=== PATIENT | female | born 1960 | race Caucasian/White ===

== ENCOUNTER 2016-11-11 07:15 | Inpatient (IN) | payer OTHER ==
[2016-11-05 12:23] LABS: % IMMATURE GRANULYOCYTES 0.3 % (0.0-1.1); ABSOLUTE IMMATURE GRANULOCYTES 0.02 10^3/uL (0.00-0.10); ADD DIFF? NO; ADD MORPH? NO; ADD SCAN? NO; ATYPICAL LYMPHOCYTE FLAG 10 (0-99); FRAGMENT RBC FLAG 0 (0-99); HEMATOCRIT 45.8 % (38.0-47.0); HEMOGLOBIN 15.9 g/dL (12.6-16.3); LEFT SHIFT FLG 0 (0-99); LIPEMIA HEMOLYSIS FLAG 90 (0-99); MEAN CELL HEMOGLOBIN 34.5 pg (27.9-34.1); MEAN CELL HEMOGLOBIN CONCENTR. 34.7 g/dL (32.4-36.7); MEAN CELL VOLUME 99.3 fL (81.5-99.8); MEAN PLATELET VOLUME 9.3 fL (8.7-11.7); PLATELET CLUMPS FLAG 10 (0-99); PLATELET COUNT 219 10^3/uL (150-400); RED BLOOD CELL COUNT 4.61 10^6/uL (4.18-5.33); RED CELL DISTRIBUTION WIDTH 12.5 % (11.5-15.2)
--- NOTE | 2016-11-05 14:37 | CPEKG ---
Heart Rate: 65 RR Interval: 923 P-R Interval: 168 QRSD Interval: 92 QT Interval: 420 QTC Interval: 437 P [place]: 52 QRS [place]: 50 T Wave [place]: 41 EKG Severity - NORMAL ECG - EKG Impression: SINUS RHYTHM Electronically Signed By: Eleno Hitchcock 05-Nov-2016 14:56:51
[2016-11-17] MEDS ORDERED: BUPIVACAINE/EPI 0.5% 30 ML SDV ONE (08:46)
[2016-11-17] MEDS ORDERED: POLYMYXIN B SULFATE 500,000 UNIT/10 ML SYR IRR ONE (08:47)
[2016-11-17] MEDS ORDERED: CALCIUM CHLORIDE 1 GM/10 ML INJ ONE (08:47)
[2016-11-17] MEDS ORDERED: THROMBIN (BOVINE) 5,000 UNIT VIAL TP ONE (08:47)
[2016-11-17] MEDS ORDERED: BACITRACIN 50,000 UNITS/10 ML SYR IRR ONE (08:48)
[2016-11-17] MEDS ORDERED: LIDOCAINE 1% 2 ML INJ ONE (09:23)
[2016-11-17] MEDS ORDERED: LR 1,000 ML IV ONE (09:41)
[2016-11-17] MEDS ORDERED: LIDOCAINE 1% 5 ML SDV ID PRN (09:41)
[2016-11-17] MEDS ORDERED: fentaNYL 250 MCG/5 ML INJ ONE (09:59)
[2016-11-17] MEDS ORDERED: MIDAZOLAM 2 MG/2 ML VIAL ONE ×2 (09:59→11:28)
[2016-11-17] MEDS ORDERED: FAMOTIDINE 20 MG TAB PO ONE (10:30)
[2016-11-17] MEDS ORDERED: CHLORHEXIDINE GLUC HIBICLENS 118 ML BTL TP ONE (10:30)
[2016-11-17] MEDS ORDERED: DEXAMETHASONE 4 MG/ML VIAL IVP ONE (10:30)
[2016-11-17] MEDS ORDERED: ACETAMINOPHEN 325 MG TAB PO ONE (10:30)
[2016-11-17] MEDS ORDERED: ROPI/epiNEPH/KETOROLAC/morphINE JOINT COCKTAIL IU ONE (10:30)
[2016-11-17] MEDS ORDERED: CEFAZOLIN 2 GM/DEXTR 100 ML IV ONE (10:30)
[2016-11-17] MEDS ORDERED: PROPOFOL 200 MG/20 ML VIAL ONE ×2 (10:54→12:43)
[2016-11-17] MEDS ORDERED: PROPOFOL/EMULSION 500 MG/50 ML BOTTLE IV ONE (10:54)
[2016-11-17 13:12] LABS: % IMMATURE GRANULYOCYTES 0.3 % (0.0-1.1); ABSOLUTE IMMATURE GRANULOCYTES 0.02 10^3/uL (0.00-0.10); ADD DIFF? NO; ADD MORPH? NO; ADD SCAN? NO; ATYPICAL LYMPHOCYTE FLAG 0 (0-99); FRAGMENT RBC FLAG 0 (0-99); HEMATOCRIT 35.2 % (38.0-47.0); LEFT SHIFT FLG 0 (0-99); LIPEMIA HEMOLYSIS FLAG 90 (0-99); MEAN CELL HEMOGLOBIN 33.9 pg (27.9-34.1); MEAN CELL HEMOGLOBIN CONCENTR. 34.1 g/dL (32.4-36.7); MEAN CELL VOLUME 99.4 fL (81.5-99.8); MEAN PLATELET VOLUME 9.5 fL (8.7-11.7); PLATELET CLUMPS FLAG 0 (0-99); PLATELET COUNT 204 10^3/uL (150-400); RED BLOOD CELL COUNT 3.54 10^6/uL (4.18-5.33)
--- NOTE | 2016-11-17 14:01 | POSTOPPROG ---
Post Op Note Date of Operation: 11/17/16 Surgeon: Marie Murillo Personnel Director: luz manuel Anesthesia: Epidural, IV Sedation Pre-op Diagnosis: l hip oa Procedure: l zbigniew with fluoro Inf/Abcess present in the surg proc area at time of surgery?: No Depth: Deep Incisional (Fascial) EBL: 500-1000
[2016-11-17] MEDS ORDERED: TEMAZEPAM 15 MG CAP PO PRN (14:02)
[2016-11-17] MEDS ORDERED: ONDANSETRON 4 MG/2 ML VIAL IVP PRN (14:02)
[2016-11-17] MEDS ORDERED: LACTULOSE 20 GM/30 ML UDCUP PO PRN (14:02)
[2016-11-17] MEDS ORDERED: PHARMACY PAIN CONSULT 1 EA MISC PRN (14:02)
[2016-11-17] MEDS ORDERED: CYCLOBENZAPRINE 10 MG TAB PO PRN (14:02)
[2016-11-17] MEDS ORDERED: METOCLOPRAMIDE 10 MG/2 ML VIAL IVP PRN (14:02)
[2016-11-17] MEDS ORDERED: MAGNESIUM HYDROXIDE 30 ML UDCUP PO PRN (14:02)
[2016-11-17] MEDS ORDERED: DIPHENOXYLATE/ATROPINE LOMOTIL 1 TAB PO PRN (14:02)
[2016-11-17] MEDS ORDERED: POLYETHYLENE GLYCOL 3350 17 GM PKT PO PRN (14:02)
[2016-11-17] MEDS ORDERED: diphenhydrAMINE 25 MG CAP PO PRN (14:02)
[2016-11-17] MEDS ORDERED: PROMETHAZINE HCL 25 MG SUPPR PR PRN (14:02)
[2016-11-17] MEDS ORDERED: BISACODYL 10 MG SUPP PR PRN (14:02)
[2016-11-17] MEDS ORDERED: fentaNYL 100 MCG/2 ML INJ ONE (14:15)
[2016-11-17] MEDS ORDERED: LR 1,000 ML IV SCH (14:30)
[2016-11-17] MEDS ORDERED: traMADol 50 MG TAB ONE (15:34)
[2016-11-17] MEDS ORDERED: ACETAMINOPHEN 325 MG TAB ONE (15:35)
[2016-11-17] MEDS ORDERED: KETOROLAC 30 MG/1 ML SDV ONE (15:35)
[2016-11-17] MEDS: ACETAMINOPHEN 325 MG TAB PO SCH (15:37)
[2016-11-17] MEDS: traMADol 50 MG TAB PO SCH (15:37)
[2016-11-17] MEDS: KETOROLAC 30 MG/1 ML SDV IVP SCH (15:37)
--- NOTE | 2016-11-17 15:39 | GOP ---
[f rep st] OPERATIVE REPORT DATE OF OPERATION: 11/17/2016 SURGEON: Marie Murillo MD COOLER SERVICER: Keven Noriega, certified PA, whose presence was medically necessary. ANESTHESIA: Spinal plus sedation. PREOPERATIVE DIAGNOSIS: Left hip osteoarthritis. POSTOPERATIVE DIAGNOSIS: Left hip osteoarthritis. PROCEDURE PERFORMED: Left total hip arthroplasty with fluoroscopy. FINDINGS: INDICATIONS: This is a 56-year-old female with a long history of left hip pain , worsening with use and with time. Radiologic imaging reveals [id number] osteoarthritic changes to the hip and acetabulum with dysplasia noted. She wishes to have surgery in order to resolve the problem. DESCRIPTION OF PROCEDURE: Patient brought to the operating room after the left side had been identified as the correct side by the patient, nurse, and physician. Once in the operating room, she was given a spinal nerve block. She was then placed on a traction table with a well-padded perineal post, and both legs placed in appropriate leg boone. Fluoroscopy was used to ensure proper positioning of the pelvis and the femur. Once ensured, the left hip and flank were sterilely prepped and draped in the usual fashion using a GSI solution. Once prepped and draped, a linear incision was made starting 2 cm lateral and inferior to the ASIS and headed in a 15 degree posterior direction, with sharp dissection carried down through the skin and subcutaneous layers, and bleeding controlled using electrocautery. The fascia overlying the TFL was identified and the fascia cut in line with its fibers, with the muscle belly of the tensor fascia kenna retracted laterally. Dissection deeper into the sheath revealed the circumflex vessels, which were ligated using electrocautery. Deeper dissection revealed the fat overlying the capsule. Blunt Cobra retractors were placed in the superior and inferior portions of the femoral neck with a T- incision made through the hip capsule. Stay sutures were placed in the superior and inferior portions of the capsule, with the Cobra retractors moved intra-articularly. An anterior retractor was placed on the anterior portion of the acetabulum. The labrum was identified and removed. Oscillating saw was used to cut across the femoral neck just above the intertrochanteric line, with the cut completed using the flat osteotome. The leg was externally rotated 40 degrees and a corkscrew was used to remove the femoral head. [place] and a curette were used to remove the pulvinar from the base of the acetabulum, along with removing the remainder of the labrum. Sequential reamers were used starting at a size 46 up to a size 49, which was noted to get good peripheral bleeding bone. The trial was noted to fit well, was checked under fluoroscopy. Once ensured we had the proper size, a size 50 mm Tritanium [place] cup was put into place with screws placed in superior and posterior portions of the cup, with a 50 x 28 mm ceramic liner placed within the acetabular cup with position checked under fluoroscopy. Once in proper position, attention was turned to the proximal femur, which was externally rotated to 90 degrees. Soft tissue dissection was done along the anterior portion of the femoral neck and the superior portion of the femoral neck, onto the greater trochanter itself. Once an adequate tissue release had been performed, the leg was placed into extension and adduction, gaining further access to the proximal femur. Rongeur was used to remove the proximal medullary bone and the superior portion of the femoral neck. Rat tail broach was placed within the femoral canal and sequential broaches were used up to a size 5, which was noted to fit securely. Trial reduction was performed, noted to have adequate fill of the proximal femur with a size 5 and very close to leg length, therefore, the leg was re-dislocated, trial was removed, and a size 5 Accolade II 127-degree neck stem was put into place and noted to fit securely. A trial was done with a +4 head and noted to fit securely and gave good stability, along with regaining her leg length, matching it to the opposite side. Therefore, the hip was re-dislocated. The trial head was removed. The trunnion was cleaned and dried and a 28 +4 mm Janusz ceramic head was placed on the femoral component. The hip was then relocated, noted to fit securely. Final fluoroscopy pictures were taken and noted to fit adequately. Joint cocktail was injected around the hip capsule, around the acetabulum and the proximal femur. 30 cc of Marcaine was infused around the actual skin incision itself. The capsule was closed using 0 Vicryl suture in a [id number] type stitch with plasma gel placed intra-articularly. 0 Vicryl was then used to close the fascia overlying the TFL with plasma gel placed within the TFL sheath. 0 Vicryl and 2-0 Vicryl suture were used to close the subcutaneous layers, and a 3-0 V-Loc suture in a running subcuticular stitch was used to close the skin. The wound was dressed with Steri-Strips, Xeroform, 4 x 4, and Tegaderm. She was completely undraped in the operating room, had both legs taken out of their appropriate leg boone. The perineal post was removed. Leg lengths were checked and noted to be nearly equal. She was then transferred onto a stretcher , and sent to recovery room in good condition. /[id number]/MODL MTDD
[2016-11-17] MEDS: oxyCODONE IR 5 MG TAB PO PRN ×2 (16:45→21:13)
[2016-11-17] MEDS: ceFAZolin 2 GM/DEXTROSE 100 ML IV SCH (19:03)
[2016-11-17] MEDS: FAMOTIDINE 20 MG TAB PO SCH (21:13)
[2016-11-17] MEDS: SENNOSIDES/DOCUSATE SODIUM TAB PO SCH (21:13)
[2016-11-17] MEDS: ONDANSETRON DISINTEGRATING 4 MG TAB PO PRN (22:25)
[2016-11-18] MEDS: KETOROLAC 30 MG/1 ML SDV IVP SCH ×3 (00:01→13:06)
[2016-11-18] MEDS: traMADol 50 MG TAB PO SCH ×3 (00:01→13:07)
[2016-11-18] MEDS: ceFAZolin 2 GM/DEXTROSE 100 ML IV SCH (02:55)
[2016-11-18] MEDS: oxyCODONE IR 5 MG TAB PO PRN (02:59)
[2016-11-18 03:50] VITALS: RESP 16
[2016-11-18 05:26] LABS: HEMATOCRIT 22.4 % (38.0-47.0); HEMOGLOBIN 7.8 g/dL (12.6-16.3)
[2016-11-18] MEDS: ACETAMINOPHEN 325 MG TAB PO SCH ×3 (05:29→13:06)
[2016-11-18] MEDS: FAMOTIDINE 20 MG TAB PO SCH (08:28)
[2016-11-18] MEDS: SENNOSIDES/DOCUSATE SODIUM TAB PO SCH (08:28)
[2016-11-18] MEDS ORDERED: VENLAFAXINE XR 37.5 MG CAP PO SCH (09:00)
[2016-11-18] MEDS ORDERED: RIVAROXABAN 10 MG TAB PO SCH (09:00)
--- NOTE | 2016-11-18 15:20 | SOAPPROG ---
SOAP Progress Note Assessment/Plan: Assessment: Plan: Subjective: states she's ready for home dressing C&D with min decrease sensation at lateral thigh DC to home Objective: Vital Signs Temp Pulse Resp BP Pulse Ox 36.8 C 108 H 16 114/62 95 11/18/16 11:31 11/18/16 11:31 11/18/16 11:31 11/18/16 11:31 11/18/16 11:31 Laboratory Results 11/18/16 04:22 11/17/16 11/18/16 11/19/16 05:59 05:59 05:59 Intake Total 6674 400 Output Total 3300 1000 Balance 8610 -271 ICD10 Worksheet Patient Problems: Problems Problem Status Onset Appendicitis Acute
[2016-11-18 16:15] VITALS: BP 119/60; PULSE 99; TEMP 97.9; O2SAT 92
[2016-11-18] MEDS: ONDANSETRON DISINTEGRATING 4 MG TAB PO PRN (16:37)
== END 2016-11-18 17:22 | disposition home or self-care (01) | DRG 470 ==
LOC: F3N 11-17 08:40
PROVIDERS: ADMIT Orthopaedic Surgery; ATTEND Orthopaedic Surgery
PROC: 0SRB0JZ Replacement of Left Hip Joint with Synthetic Substitute, Open Approach (ICD-10-PCS; principal; 2016-11-17 10:00)
DX: M16.12 Unilateral primary osteoarthritis, left hip (principal)
CPT/HCPCS: 97116-GP; 97161-GP; 97165-GO; 97530-GP; C1713; J0171; J0690; J1100; J1885; J2250; J2704; J2795; J3010

== ENCOUNTER → 2017-04-26 | Outpatient (CLI) | payer OTHER | LOC: FIMAGING 09:29 | PROVIDERS: ATTEND Physician Assistant | PROC: CP1F1ZZ Planar Nuclear Medicine Imaging of Bilateral Lower Extremities using Technetium 99m (Tc-99m) (ICD-10-PCS; principal; 2017-04-26) | PROC: CP161ZZ Planar Nuclear Medicine Imaging of Pelvis using Technetium 99m (Tc-99m) (ICD-10-PCS; principal; 2017-04-26) | DX: T84.038A Mechanical loosening of other internal prosthetic joint, initial encounter (principal) | CPT/HCPCS: 78315; A9503 ==

== ENCOUNTER → 2017-09-17 | Outpatient (CLI) | payer OTHER | LOC: FIMAGING 13:53 | PROVIDERS: ATTEND Obstetrics & Gynecology | DX: Z12.31 Encounter for screening mammogram for malignant neoplasm of breast (principal) ==